=== PATIENT | female | born 1980 | race African-American/Black ===

== ENCOUNTER 2016-05-10 21:09 | Emergency (ER) | payer OTHER ==
[~2016-05-10 21:09] MED LIST: Z.0.NO CURRENT MEDS
[2016-05-10 21:13] VITALS: BP 135/61; PULSE 81; RESP 16; TEMP 97.4; O2SAT 98
--- NOTE | 2016-05-10 21:48 | PD ---
HPI Chief Complaint: Skin Problem Time Seen by Provider: 21:47 Travel History International Travel<30 days: No Contact w/Intl Traveler<30days: No Traveled to known affect area: No History of Present Illness HPI 35-year-old female presents to the emergency department for evaluation of a pruritic rash on her trunk. Mom and her kids all have this rash. She states she has recently changed detergents does not recall any other new exposures. Denies any recent illnesses, fever, chills. She has no other symptoms to report this time. PFSH Past Medical History Heart Rhythm Problems: No Cardiac Catheterization: No Cardiovascular Problems: No High Cholesterol: No Congestive Heart Failure: No Diabetes: No Heparin Induced Thrombocytopen: No Hypertension: Yes (during ) Tetanus Vaccination: < 5 Years Influenza Vaccination: No ?: Not LMP: TUBAL Tubal Ligation: Yes Past Surgical History Coronary Artery Bypass Graft: No Family History Family Myocardial Infarction: Yes Social History Alcohol Use: No Tobacco Use: No Substance Use: No Allergies-Medications (Allergen,Severity, Reaction): Coded Allergies: Tylenol (Verified Allergy, Severe, 05/10/16) Reported Meds & Prescriptions Reported Meds & Active Scripts Active No Active Prescriptions or Reported Medications Review of Systems Except as stated in HPI: all other systems reviewed are Neg Physical Exam Narrative GENERAL: Well-nourished, well-developed female patient, ambulatory and in no acute distress SKIN: Warm and dry. Franko papular, mildly excoriated rash on the anterior posterior trunk. No vesicle or pustule formation. It is blanchable. HEAD: Normocephalic. EYES: No scleral icterus. No injection or drainage. NECK: Supple, trachea midline. No JVD or lymphadenopathy. CARDIOVASCULAR: Regular rate and rhythm without murmurs, gallops, or rubs. RESPIRATORY: Breath sounds equal bilaterally. No accessory muscle use. GASTROINTESTINAL: Abdomen soft, non-tender, nondistended. MUSCULOSKELETAL: No cyanosis, or edema. BACK: Nontender without obvious deformity. No CVA tenderness. Data Data Last Documented VS Vital Signs Date Time Temp Pulse Resp B/P Pulse Ox O2 Delivery O2 Flow Rate FiO2 05/10/16 21:13 97.4 81 16 135/61 98 Room Air Orders Diphenhydramine (Benadryl) (05/10/16 22:00) Dexamethasone Inj (Decadron Inj) (05/10/16 22:00) MDM Medical Decision Making Medical Screen Exam Complete: Yes Emergency Medical Condition: Yes Medical Record Reviewed: Yes Differential Diagnosis Pruritus versus urticaria versus contact dermatitis versus scabies Narrative Course 35-year-old female presents to the emergency department for evaluation of a pruritic rash. This is likely contact dermatitis. Patient is given Benadryl and steroids here in the emergency department. Patient is discharged home to follow-up with primary care provider and return immediately with any acute worsening symptoms. Diagnosis Primary Impression: Urticaria Referrals: Primary Care Physician Patient Instructions: General Instructions, Urticaria (ED) Additional Instructions: Avoid scratching lesions Benadryl as directed on package as needed for itching Follow-up with your primary care provider Return immediately to the emergency department with any acute worsening of symptoms Med/Other Pt SpecificInfo: No Change to Meds Scripts No Active Prescriptions or Reported Meds Disposition: 01 DISCHARGE HOME Condition: Stable Marisol Salter May 10, 2016 21:47
[2016-05-10] MEDS ORDERED: diphenhydrAMINE HCL 50 MG CAP PO ONE (22:00)
[2016-05-10] MEDS ORDERED: DEXAMETHASONE SOD PHOS 20 MG/5 ML VIAL IM ONE (22:00)
== END 2016-05-10 22:22 | disposition home or self-care (01) ==
LOC: NEPB 21:09
DX: R21 Rash and other nonspecific skin eruption (principal)
CPT/HCPCS: 96372; 99282; J1100; Q0163

== ENCOUNTER 2017-03-12 10:04 | Emergency (ER) | payer OTHER ==
[~2017-03-12] VITALS: Ht 165.1 cm; Wt 62.0 kg
[2017-03-12 10:05] VITALS: BP 123/64; PULSE 70; RESP 14; TEMP 98.3; O2SAT 99
[2017-03-12] MEDS ORDERED: DEXAMETHASONE SOD PHOS 20 MG/5 ML VIAL IV PUSH ONE (10:45)
[2017-03-12] MEDS ORDERED: diphenhydrAMINE HCL 50 MG/ML VIAL IVP ONE (10:45)
[2017-03-12] MEDS ORDERED: KETOROLAC TROMETHAMINE 30 MG/ML (IVP) VIAL IVP ONE (10:45)
[2017-03-12] MEDS ORDERED: METOCLOPRAMIDE HCL 10 MG/2 ML VIAL IVP ONE (10:45)
--- NOTE | 2017-03-12 10:45 | PD ---
HPI Chief Complaint: Headache Time Seen by Provider: 10:24 Travel History International Travel<30 days: No Contact w/Intl Traveler<30days: No Traveled to known affect area: No History of Present Illness HPI Patient is a 36-year-old female who presents to emergency room with complaints of migraine headache. Patient reports that she has had history of migraines all her life, reports that when she has recurrent symptoms, she usually takes Excedrin Migraine which usually helps with her symptoms. Patient reports that she did try taking Excedrin migraine yesterday without any relief of symptoms. Patient reports that for the past 2 weeks, she has had left-sided than right- sided headache. Patient reports that the headache moves from one side to the other, reports that it feels a "pounding sensation" to her temples. Patient reports photophobia with her symptoms. She reports that she does feel nauseous but has not vomited. Reports that her symptoms feel similar to her previous migraine headaches. Patient with no fever or chills, denies any trauma to head or neck. Patient with no chest pain or shortness breath, no cough or congestion , no abdominal pain. PFSH Past Medical History Heart Rhythm Problems: No Cardiac Catheterization: No Cardiovascular Problems: No High Cholesterol: No Congestive Heart Failure: No Diabetes: No Headaches: Yes Heparin Induced Thrombocytopen: No Hypertension: Yes (during ) Migraines: Yes Influenza Vaccination: No ?: Not Tubal Ligation: Yes Past Surgical History Surgical History: No Previous Surgery Coronary Artery Bypass Graft: No Family History Family Myocardial Infarction: Yes Social History Alcohol Use: No Tobacco Use: No Substance Use: No Allergies-Medications (Allergen,Severity, Reaction): Coded Allergies: acetaminophen (Unverified Allergy, Severe, 03/12/17) Reported Meds & Prescriptions Reported Meds & Active Scripts Active No Active Prescriptions or Reported Medications Review of Systems General / Constitutional: No: Fever, Chills Eyes: Positive: Photophobia, No: Visual changes HENT: Positive: Headaches, Lightheadedness, No: Neck Stiffness, Neck Pain Cardiovascular: No: Chest Pain or Discomfort, Palpitations, Irregular Rhythm Respiratory: No: Shortness of Breath Gastrointestinal: No: Abdominal Pain Genitourinary: No: Dysuria Musculoskeletal: No: Pain Skin: No Rash Neurologic: Positive: Headache, No: Weakness, Dizziness, Syncope, Focal Abnormalities, Tremor, Ataxia, Paresthesia, Incontinence, Seizures, Sensory Disturbance Psychiatric: No: Depression Endocrine: No: Polydipsia Hematologic/Lymphatic: No: Easy Bruising Physical Exam Narrative GENERAL: Moderate distress SKIN: Focused skin assessment warm/dry. HEAD: Atraumatic. Normocephalic. EYES: Pupils equal and round. No scleral icterus. No injection or drainage. ENT: No nasal bleeding or discharge. Mucous membranes pink and moist. NECK: Trachea midline. No JVD. CARDIOVASCULAR: Regular rate and rhythm. No murmur appreciated. RESPIRATORY: No accessory muscle use. Clear to auscultation. Breath sounds equal bilaterally. GASTROINTESTINAL: Abdomen soft, non-tender, nondistended. Hepatic and splenic margins not palpable. MUSCULOSKELETAL: No obvious deformities. No clubbing. No cyanosis. No edema. NEUROLOGICAL: Awake and alert. No obvious cranial nerve deficits. Motor grossly within normal limits. Normal speech. CN 2-12 grossly intact with no neurological deficits PSYCHIATRIC: Appropriate mood and affect; insight and judgment normal. Data Data Last Documented VS Vital Signs Date Time Temp Pulse Resp B/P (MAP) Pulse Ox O2 Delivery O2 Flow Rate FiO2 03/12/17 12:02 16 03/12/17 11:00 73 99 Room Air 03/12/17 10:05 98.3 123/64 (83) Orders Orders Complete Blood Count With Diff (03/12/17 10:26) Basic Metabolic Panel (Bmp) (03/12/17 10:26) Prothrombin Time / Inr (Pt) (03/12/17 10:26) Act Partial Throm Time (Ptt) (03/12/17 10:26) Ecg Monitoring (03/12/17 10:26) Iv Access Insert/Monitor (03/12/17 10:26) Ed Urine Pregnancytest Poc (03/12/17 10:26) Urinalysis - C+S If Indicated (03/12/17 10:26) Ketorolac Inj (Toradol Inj) (03/12/17 10:45) Diphenhydramine Inj (Benadryl Inj) (03/12/17 10:45) Metoclopramide Inj (Reglan Inj) (03/12/17 10:45) Dexamethasone Inj (Decadron Inj) (03/12/17 10:45) Urine Culture (03/12/17 12:20) Nitrofurantoin Monohyd Macrocr (Macrobid (03/12/17 13:45) Labs Laboratory Tests Test 03/12/17 10:46 03/12/17 12:20 White Blood Count 5.7 TH/MM3 Red Blood Count 4.12 MIL/MM3 Hemoglobin 12.6 GM/DL Hematocrit 37.8 % Mean Corpuscular Volume 91.6 FL Mean Corpuscular Hemoglobin 30.4 PG Mean Corpuscular Hemoglobin Concent 33.2 % Red Cell Distribution Width 13.2 % Platelet Count 204 TH/MM3 Mean Platelet Volume 8.6 FL Neutrophils (%) (Auto) 51.7 % Lymphocytes (%) (Auto) 38.0 % Monocytes (%) (Auto) 7.9 % Eosinophils (%) (Auto) 2.0 % Basophils (%) (Auto) 0.4 % Neutrophils # (Auto) 3.0 TH/MM3 Lymphocytes # (Auto) 2.2 TH/MM3 Monocytes # (Auto) 0.5 TH/MM3 Eosinophils # (Auto) 0.1 TH/MM3 Basophils # (Auto) 0.0 TH/MM3 CBC Comment DIFF FINAL Differential Comment Prothrombin Time 11.7 SEC Prothromb Time International Ratio 1.2 RATIO Activated Partial Thromboplast Time 24.5 SEC Blood Urea Nitrogen 9 MG/DL Creatinine 0.70 MG/DL Random Glucose 85 MG/DL Calcium Level 8.7 MG/DL Sodium Level 139 MEQ/L Potassium Level 4.3 MEQ/L Chloride Level 109 MEQ/L Carbon Dioxide Level 24.7 MEQ/L Anion Gap 5 MEQ/L Estimat Glomerular Filtration Rate 113 ML/MIN Urine Color YELLOW Urine Turbidity HAZY Urine pH 6.0 Urine Specific Juliette 1.017 Urine Protein NEG mg/dL Urine Glucose (UA) NEG mg/dL Urine Ketones NEG mg/dL Urine Occult Blood TRACE Urine Nitrite NEG Urine Bilirubin NEG Urine Urobilinogen LESS THAN 2.0 MG/DL Urine Leukocyte Esterase SMALL Urine RBC 1 /hpf Urine WBC 4 /hpf Urine Squamous Epithelial Cells 4 /hpf Urine Bacteria MOD /hpf Urine Mucus FEW /lpf Microscopic Urinalysis Comment CULTURE INDICATED MDM Medical Decision Making Medical Screen Exam Complete: Yes Emergency Medical Condition: Yes Medical Record Reviewed: Yes Interpretation(s) Vital Signs Date Time Temp Pulse Resp B/P (MAP) Pulse Ox O2 Delivery O2 Flow Rate FiO2 03/12/17 10:05 98.3 70 14 123/64 (83) 99 Differential Diagnosis Cephalgia, electrolyte abnormality Narrative Course Patient is a 36-year-old female who presents to emergency room with complaints of typical migraine headache which has been ongoing for the past 2 weeks. Patient reports that she has had photophobia with her symptoms, reports that her headache moves from the left to the right side of her temples. Reports no fever or chills, reports similar symptoms to when she has had migraine headaches in the past. Patient at this time with no cranial nerve deficits, plan to treat for migraine headache. During the course of the patients emergency department visit, the patients history, examination, and differential diagnosis were reviewed with the patient. The patient was placed on a heater furnace with oximetry and frequent blood pressure monitoring. The patient had and IV access obtained and blood work sent for analysis. The patient was initially provided IV fluids, IV dexamethasone, IV Toradol as well as IV Reglan The patients laboratory studies were reviewed and remarkable for: Laboratory Tests Test 03/12/17 10:46 03/12/17 12:20 White Blood Count 5.7 TH/MM3 (4.0-11.0) Red Blood Count 4.12 MIL/MM3 (4.00-5.30) Hemoglobin 12.6 GM/DL (11.6-15.3) Hematocrit 37.8 % (35.0-46.0) Mean Corpuscular Volume 91.6 FL (80.0-100.0) Mean Corpuscular Hemoglobin 30.4 PG (27.0-34.0) Mean Corpuscular Hemoglobin Concent 33.2 % (32.0-36.0) Red Cell Distribution Width 13.2 % (11.6-17.2) Platelet Count 204 TH/MM3 (150-450) Mean Platelet Volume 8.6 FL (7.0-11.0) Neutrophils (%) (Auto) 51.7 % (16.0-70.0) Lymphocytes (%) (Auto) 38.0 % (9.0-44.0) Monocytes (%) (Auto) 7.9 % (0.0-8.0) Eosinophils (%) (Auto) 2.0 % (0.0-4.0) Basophils (%) (Auto) 0.4 % (0.0-2.0) Neutrophils # (Auto) 3.0 TH/MM3 (1.8-7.7) Lymphocytes # (Auto) 2.2 TH/MM3 (1.0-4.8) Monocytes # (Auto) 0.5 TH/MM3 (0-0.9) Eosinophils # (Auto) 0.1 TH/MM3 (0-0.4) Basophils # (Auto) 0.0 TH/MM3 (0-0.2) CBC Comment DIFF FINAL Differential Comment Prothrombin Time 11.7 SEC (9.8-11.6) Prothromb Time International Ratio 1.2 RATIO Activated Partial Thromboplast Time 24.5 SEC (24.3-30.1) Blood Urea Nitrogen 9 MG/DL (7-18) Creatinine 0.70 MG/DL (0.50-1.00) Random Glucose 85 MG/DL (74-106) Calcium Level 8.7 MG/DL (8.5-10.1) Sodium Level 139 MEQ/L (136-145) Potassium Level 4.3 MEQ/L (3.5-5.1) Chloride Level 109 MEQ/L (98-107) Carbon Dioxide Level 24.7 MEQ/L (21.0-32.0) Anion Gap 5 MEQ/L (5-15) Estimat Glomerular Filtration Rate 113 ML/MIN (>89) Urine Color YELLOW (YELLW/STRAW) Urine Turbidity HAZY (CLEAR) Urine pH 6.0 (5.0-8.5) Urine Specific Juliette 1.017 (1.002-1.035) Urine Protein NEG mg/dL (NEG-TRACE) Urine Glucose (UA) NEG mg/dL (NEG) Urine Ketones NEG mg/dL (NEG) Urine Occult Blood TRACE (NEG) Urine Nitrite NEG (NEG) Urine Bilirubin NEG (NEG) Urine Urobilinogen LESS THAN 2.0 MG/DL (LESS Urine Leukocyte Esterase SMALL (NEG) Urine RBC 1 /hpf (0-3) Urine WBC 4 /hpf (0-5) Urine Squamous Epithelial Cells 4 /hpf (0-5) Urine Bacteria MOD /hpf (NONE) Urine Mucus FEW /lpf (OCC) Microscopic Urinalysis Comment CULTURE INDICATED Patient reevaluated, patient with near complete resolution of symptoms at this time. I reviewed all labs and all studies as well as all findings with patient in detail. She will follow-up with her primary care doctor and will return to the emergency room as needed. Diagnosis Primary Impression: Cephalgia Qualified Codes: R51 - Headache Additional Impression: UTI (urinary tract infection) Qualified Codes: N30.00 - Acute cystitis without hematuria Patient Instructions: General Instructions Additional Instructions: Please provide patient with a copy of their lab work and studies at discharge* * Please follow up with your primary care doctor in 2-3 days Return to the ER if symptoms worsen or progress Return to the ER as needed Please follow up with all cultures from today Med/Other Pt SpecificInfo: Prescription(s) given Scripts Nitrofurantoin Monohydrate Macrocrystals (Macrobid) 100 Mg Cap 100 MG PO BID for Infection for 7 Days, #14 CAP 0 Refills Prov: Cara Flynn DO 03/12/17 Disposition: 01 DISCHARGE HOME Condition: Stable Cara Flynn DO Mar 12, 2017 10:45
[2017-03-12 10:56] LABS: BASOPHIL % 0.4 % (0.0-2.0); EOSINOPHIL # 0.1 TH/MM3 (0-0.4); HEMATOCRIT 37.8 % (35.0-46.0); HEMOGLOBIN 12.6 GM/DL (11.6-15.3); LYMPHOCYTE # 2.2 TH/MM3 (1.0-4.8); MEAN CELL VOLUME 91.6 FL (80.0-100.0); MEAN CORPUSCULAR HEMOGLOBIN 30.4 PG (27.0-34.0); MEAN CORPUSCULAR HGB CONC 33.2 % (32.0-36.0); MEAN PLATELET VOLUME 8.6 FL (7.0-11.0); MONO % 7.9 % (0.0-8.0); MONOCYTE # 0.5 TH/MM3 (0-0.9); NEUT % 51.7 % (16.0-70.0); PLATELET COUNT 204 TH/MM3 (150-450); RED BLOOD COUNT 4.12 MIL/MM3 (4.00-5.30); RED CELL DISTRIBUTION WIDTH 13.2 % (11.6-17.2); WHITE BLOOD COUNT 5.7 TH/MM3 (4.0-11.0)
[2017-03-12 11:09] LABS: INTERNATIONAL NORMALIZED RATIO 1.2 RATIO; PROTHROMBIN TIME - PATIENT 11.7 SEC (9.8-11.6)
[2017-03-12 11:18] LABS: BICARBONATE 24.7 MEQ/L (21.0-32.0); CALCIUM 8.7 MG/DL (8.5-10.1); CREATININE 0.7 MG/DL (0.50-1.00)
[2017-03-12 12:02] VITALS: RESP 16
[2017-03-12 13:10] LABS: BACTERIA, URINE MOD /hpf; BILIRUBIN, URINE NEG (NEG); BLOOD, URINE TRACE (NEG); GLUCOSE,URINE NEG (NEG); KETONE, URINE NEG (NEG); MUCUS URINE FEW /lpf (OCC); NITRITE,URINE NEG (NEG); SQUAMOUS EPITHELIAL CELL URINE 4 /hpf (0-5); URINE COLOR YELLOW (YELLW/STRAW); URINE LEUKOCYTE ESTERASE SMALL (NEG)
[2017-03-12] MEDS ORDERED: MACR100C2 PO (13:43)
[2017-03-12] MEDS ORDERED: NITROFURANTOIN MONOHYD MACROCR 100 MG CAP PO ONE (13:45)
[2017-03-12 13:55] VITALS: BP 110/83; TEMP 97.8
== END 2017-03-12 13:55 | disposition home or self-care (01) ==
LOC: NEPD 10:04
DX: G43.909 Migraine, unspecified, not intractable, without status migrainosus (principal); N30.00 Acute cystitis without hematuria; B96.20 Unspecified Escherichia coli [E. coli] as the cause of diseases classified elsewhere
CPT/HCPCS: 80048; 81001; 84703; 85025; 85610; 85730; 87077; 87086; 87186; 96374; 96375; 99284; J1100; J1200; J1885; J2765

== ENCOUNTER 2017-05-17 12:00 | Emergency (ER) | payer OTHER ==
[~2017-05-17] VITALS: Ht 167.6 cm; Wt 60.0 kg
[~2017-05-17 12:00] MED LIST changes: +MACR100C2 PO; -Z.0.NO CURRENT MEDS
[2017-05-17 12:02] VITALS: BP 120/55; PULSE 69; RESP 16; TEMP 97.9; O2SAT 99
[2017-05-17] MEDS ORDERED: BACT800T5 PO (12:27)
[2017-05-17] MEDS ORDERED: CEPH-460 PO (12:27)
--- NOTE | 2017-05-17 12:29 | PD ---
HPI Chief Complaint: Skin Problem Time Seen by Provider: 12:21 Travel History International Travel<30 days: No Contact w/Intl Traveler<30days: No Traveled to known affect area: No History of Present Illness HPI 36-year-old female presents to the emergency department for evaluation of possible skin infection to her right foot on the left first toe, third toe, fourth toe. Patient states that started yesterday. She denies any traumatic injury. No fevers or chills. She has no chronic medical problems and takes no prescribed medications. No exacerbating or alleviating factors. No radiation of pain. Current pain is 9/10, aching and throbbing. Moderate severity. PFSH Past Medical History Heart Rhythm Problems: No Cardiac Catheterization: No Cardiovascular Problems: No High Cholesterol: No Congestive Heart Failure: No Diabetes: No Headaches: Yes Heparin Induced Thrombocytopen: No Hypertension: Yes (during ) Migraines: Yes ?: Not LMP: 03/30/17 Tubal Ligation: Yes Past Surgical History Coronary Artery Bypass Graft: No Social History Alcohol Use: No Tobacco Use: No Substance Use: No Allergies-Medications (Allergen,Severity, Reaction): Coded Allergies: acetaminophen (Unverified Allergy, Severe, 03/12/17) Reported Meds & Prescriptions Reported Meds & Active Scripts Active Macrobid (Nitrofurantoin Monoh/Nitrofur Macro) 100 Mg Cap 100 Mg PO BID 7 Days Review of Systems Except as stated in HPI: all other systems reviewed are Neg Physical Exam Narrative GENERAL: Well-nourished, well-developed female patient, ambulatory. Afebrile. SKIN: Focused skin assessment warm/dry. Patient has small open areas to the first toe, third toe, fourth toe on the right foot. There is some mild drainage from the area on the third toe. No red streaking or swelling. HEAD: Normocephalic. Atraumatic. EYES: No scleral icterus. No injection or drainage. NECK: Supple, trachea midline. No JVD or lymphadenopathy. CARDIOVASCULAR: Regular rate and rhythm without murmurs, gallops, or rubs. RESPIRATORY: Breath sounds equal bilaterally. No accessory muscle use. Lungs sounds are clear to auscultation. MUSCULOSKELETAL: No cyanosis, or edema. Data Data Last Documented VS Vital Signs Date Time Temp Pulse Resp B/P (MAP) Pulse Ox O2 Delivery O2 Flow Rate FiO2 05/17/17 12:02 97.9 69 16 120/55 (76) 99 Room Air Orders Orders Wound Culture And Gram Stain (05/17/17 12:24) MDM Medical Decision Making Medical Screen Exam Complete: Yes Emergency Medical Condition: Yes Medical Record Reviewed: Yes Differential Diagnosis Cellulitis versus abscess versus skin rash Narrative Course 36-year-old female presents to the emergency department for evaluation of possible infection to her right foot that started yesterday without injury. Culture swab is taken from the area on the third toe. Patient will be discharged with a prescription for Bactrim and Keflex. She is instructed on proper wound care. She is to follow-up with a primary care physician or return here for any acute worsening of symptoms. The patient was discharged in stable condition with instructions, including return instructions and follow up instructions. Diagnosis Primary Impression: Cellulitis of right foot Referrals: Primary Care Physician call for appointment Patient Instructions: Cellulitis (ED), General Instructions Additional Instructions: Clean areas twice daily with soap and water and apply [id number] antibiotic ointment. Keep clean and dry. Take antibiotics as directed until gone. Follow-up with your primary care physician. Return to the emergency department for any acute worsening of symptoms. Med/Other Pt SpecificInfo: Prescription(s) given Scripts Cephalexin (Keflex) 500 Mg Capsule 500 MG PO Q6H for Infection for 10 Days, #40 CAP 0 Refills Prov: Erin Chaves 05/17/17 Sulfamethoxazole-Trimethoprim (Bactrim DS) 800-160 Mg Tab 1 TAB PO BID for Infection, #20 TAB 0 Refills Prov: Erin Chaves 05/17/17 Disposition: 01 DISCHARGE HOME Condition: Stable Erin Chaves May 17, 2017 12:29
== END 2017-05-17 12:41 | disposition home or self-care (01) ==
LOC: NEPK 12:00
DX: L03.115 Cellulitis of right lower limb (principal)
CPT/HCPCS: 86403; 87070; 87077; 87186; 99283

== ENCOUNTER 2017-08-02 20:27 | Emergency (ER) | payer OTHER ==
[~2017-08-02] VITALS: Ht 167.6 cm; Wt 65.0 kg
[~2017-08-02 20:27] MED LIST changes: +BACT800T5 PO; +CEPH-460 PO
[2017-08-02 20:29] VITALS: BP 123/62; PULSE 77; RESP 16; TEMP 98.3; O2SAT 100
--- NOTE | 2017-08-02 21:35 | PD ---
HPI Chief Complaint: Skin Problem Time Seen by Provider: 21:15 Travel History International Travel<30 days: No Contact w/Intl Traveler<30days: No Traveled to known affect area: No History of Present Illness HPI 36-year-old female presents to the ED for evaluation of chronic rash of the dorsal aspect of the right foot. Occasionally blisters and bleeds. Mildly pruritic. Patient states that she was seen for this in April and prescribed antibiotics. She states that the rash improved but then worsened. She denies fevers, chills, pain associated with the rash, numbness, tingling, weakness, limitations range of motion of the affected extremity. She is not diabetic. She endorses similar, though less severe symptoms of the left foot. She has not seen a primary care provider or portable sawmill operator. PFSH Past Medical History Heart Rhythm Problems: No Cardiac Catheterization: No Cardiovascular Problems: No High Cholesterol: No Congestive Heart Failure: No Diabetes: No Headaches: Yes Heparin Induced Thrombocytopen: No Hypertension: Yes (during ) Migraines: Yes ?: Not Tubal Ligation: Yes Past Surgical History Coronary Artery Bypass Graft: No Family History Family Myocardial Infarction: Yes Social History Alcohol Use: No Tobacco Use: No Substance Use: No Allergies-Medications (Allergen,Severity, Reaction): Coded Allergies: acetaminophen (Unverified Allergy, Severe, 08/02/17) diphenhydramine (Verified Allergy, Unknown, 08/02/17) Reported Meds & Prescriptions Reported Meds & Active Scripts Active Bactrim DS (Sulfamethoxazole-Trimethoprim) 800-160 Mg Tab 1 Tab PO BID Terbinafine Topical 1 % Cream 1 Applic TOPICAL BID 30 Days Keflex (Cephalexin) 500 Mg Capsule 500 Mg PO Q6H 10 Days Bactrim DS (Sulfamethoxazole-Trimethoprim) 800-160 Mg Tab 1 Tab PO BID Macrobid (Nitrofurantoin Monoh/Nitrofur Macro) 100 Mg Cap 100 Mg PO BID 7 Days Review of Systems Except as stated in HPI: all other systems reviewed are Neg Physical Exam Narrative GENERAL: Well-nourished, well-developed nontoxic appearing -[place] female in no acute distress. SKIN: Focused skin assessment warm/dry. Feet are foul smelling. There is a erythematous, vesicular, blanching rash over the dorsal aspect of the right forefoot. There is mild interdigital involvement. The patient has similar symptoms in the interdigital spaces of the left foot. HEAD: Normocephalic. EYES: No scleral icterus. No injection or drainage. NECK: Supple, trachea midline. No JVD or lymphadenopathy. CARDIOVASCULAR: Regular rate and rhythm without murmurs, gallops, or rubs. RESPIRATORY: Breath sounds equal bilaterally. No accessory muscle use. GASTROINTESTINAL: Abdomen soft, non-tender, nondistended. MUSCULOSKELETAL: No cyanosis, or edema. Patient retains full, active, painless ROM of bilateral lower extremities. Neurovascularly intact distally. BACK: Nontender without obvious deformity. No CVA tenderness. Data Data Last Documented VS Vital Signs Date Time Temp Pulse Resp B/P (MAP) Pulse Ox O2 Delivery O2 Flow Rate FiO2 08/02/17 20:29 98.3 77 16 123/62 (82) 100 Orders Orders Ed Discharge Order (08/02/17 21:41) MDM Medical Decision Making Medical Screen Exam Complete: Yes Emergency Medical Condition: Yes Differential Diagnosis Tinea pedis versus cellulitis versus eczema versus chronic wound versus other Narrative Course 36-year-old female presents to the ED for evaluation of chronic rash of the dorsal aspect of the right foot. Occasionally blisters and bleeds. Mildly pruritic. Patient states that she was seen for this in April and prescribed antibiotics. She states that the rash improved but then worsened. Vitals reviewed. On exam there is a erythematous, vesicular, blanching rash over the dorsal aspect of the right forefoot. There is mild interdigital involvement. The patient has similar symptoms in the interdigital spaces of the left foot. The foot has a fungal odor. I suspect this is tinea pedis with secondary infection. Patient's prescribed topical terbinafine and oral Bactrim. She is instructed to use the medications as prescribed, keep the feet clean and dry, change socks frequently, follow with the portable sawmill operator or ship fastener. She indicated understanding of the instructions and is agreeable to care plan. The patient is stable and discharged home. Diagnosis Primary Impression: Tinea pedis of right foot Referrals: Environmental Analyst Additional Instructions: Keep your feet clean and dry. Apply topical medication twice a day as prescribed. Change her socks often to keep your feet clean and dry. Allow the area to air dry when possible. Begin antibiotics tomorrow and take them until every dose is gone. Follow-up with the portable sawmill operator as discussed. Return to the ED for worsening symptoms or any urgent or emergent medical condition. Med/Other Pt SpecificInfo: Prescription(s) given Scripts Sulfamethoxazole-Trimethoprim (Bactrim DS) 800-160 Mg Tab 1 TAB PO BID for Infection, #14 TAB 0 Refills Prov: Nadia Petersen MD 08/02/17 Terbinafine Topical (Terbinafine Topical) 1 % Cream 1 APPLIC TOPICAL BID for Manage Fungal Infection for 30 Days, #1 TUBE 0 Refills Prov: Nadia Petersen MD 08/02/17 Disposition: 01 DISCHARGE HOME Condition: Stable Juliana Monroe August 02, 2017 21:35
[2017-08-02] MEDS ORDERED: TERB1CRE11 TOPICAL (21:36)
[2017-08-02] MEDS ORDERED: BACT800T5 PO (21:36)
== END 2017-08-02 22:31 | disposition home or self-care (01) ==
LOC: NEPC 20:27
DX: B35.3 Tinea pedis (principal); I10 Essential (primary) hypertension; Z88.6 Allergy status to analgesic agent; Z88.8 Allergy status to other drugs, medicaments and biological substances; Z79.899 Other long term (current) drug therapy
CPT/HCPCS: 99283